=== PATIENT | male | born 1965 | race Caucasian/White ===

== ENCOUNTER 2017-09-16 19:19 | Observation (INO) | payer MEDICAID, OTHER ==
[~2017-09-16] VITALS: Ht 185.4 cm; Wt 92.3 kg
[~2017-09-16 19:19] MED LIST: ASPI81TA17 PO; LEVA750T PO; LISI-360 PO; LOVA20TA PO; PRED20 PO
[2017-09-16 19:28] VITALS: BP 92/54; PULSE 77; RESP 18; TEMP 98.5; O2SAT 94
[2017-09-16] MEDS ORDERED: SODIUM CHLOR 0.9% 1000 ML INJ 1,000 ML IV SCH (19:30)
[2017-09-16] MEDS ORDERED: THIAMINE INJ 100 MG in SODIUM CHLORIDE 0.9% INJ 100 ML IV ONE (19:30)
--- NOTE | 2017-09-16 19:38 | PD ---
HPI Chief Complaint: Syncope/Near-Syncope Time Seen by Provider: 19:29 Travel History International Travel<30 days: No Contact w/Intl Traveler<30days: No Traveled to known affect area: No History of Present Illness HPI The patient is a 52 year old male with a history of alcohol abuse who presents to the [facility] emergency department with a history of tripping and falling at the [facility], [place] where he was in the process of waiting for detox. The patient reports that he normally drinks a fifth of vodka per day. He reports that he did drink a pint of vodka today. He reports he was last and rehabilitation for alcohol abuse 3 weeks ago. He reports that he began to drink immediately on the way home from his detox. The patient's only other medical problems are a history of right-sided sciatica and hypertension. The patient reports that he fell forward and hit the left side of his head. The patient reports that he believes that he may have had a loss of consciousness. He reports that he has neck pain. He denies having any numbness or tingling to his extremities or weakness of his extremities. He reports that he does have right-sided effecting sciatica that was aggravated by the fall. On review of systems otherwise, the patient denies having any recent fevers, cough, congestion, chest pain, shortness of breath, abdominal pain, vomiting, diarrhea, urinary symptoms, or other neurologic symptoms. [facility] Past Medical History Narrative Medical The patient's past medical history is significant for hypertension, sciatica Cancer: No Cardiovascular Problems: No Diabetes: No Endocrine: No Genitourinary: No Hepatitis: No Hiatal Hernia: No Immune Disorder: No Musculoskeletal: No Neurologic: No Psychiatric: No Reproductive: No Respiratory: No Thyroid Disease: No Past Surgical History Surgical History: No Previous Surgery AICD: No Joint Replacement: No Pacemaker: No Social History Alcohol Use: Yes (1/5 of vodka per day) Tobacco Use: Yes (one pack per day) Substance Use: No Allergies-Medications (Allergen,Severity, Reaction): Coded Allergies: penicillin G (Unverified Allergy, Severe, Anaphylaxis, 06/11/17) Reported Meds & Prescriptions Reported Meds & Active Scripts Active Reported Lisinopril 10 Mg Tab 10 Mg PO DAILY Hydrochlorothiazide 25 Mg Tab 25 Mg PO DAILY Hydrochlorothiazide 25 Mg Tab 25 Mg PO BID Propranolol (Propranolol HCl) 10 Mg Tab 10 Mg PO Q12HR Review of Systems Except as stated in HPI: all other systems reviewed are Neg General / Constitutional: No: Fever Eyes: No: Visual changes HENT: Positive: Headaches, Neck Pain, No: Neck Stiffness Cardiovascular: No: Chest Pain or Discomfort Respiratory: No: Shortness of Breath Gastrointestinal: No: Abdominal Pain Genitourinary: No: Dysuria Musculoskeletal: No: Pain Skin: No Rash Neurologic: Positive: Headache, No: Weakness, Focal Abnormalities, Change in Mentation, Slurred Speech, Sensory Disturbance Psychiatric: No: Depression Endocrine: No: Polydipsia Hematologic/Lymphatic: No: Easy Bruising Physical Exam Narrative General: The patient is a well-developed well-nourished male in no acute distress. The patient is brought in on a back board in full c-spine immobilization by emergency services. Head and Neck exam: Head is normocephalic, with reported pain along the left side of his forehead, however there is no visible erythema, ecchymosis, or edema. No facial bone tenderness or increased facial bone mobility noted on palpation. Eyes: EOMI, pupils are equal round and reactive to light. Nose: Midline septum with pink mucous membranes Mouth: Dentition unremarkable. Moist mucus membranes. Posterior oropharynx is not erythematous. No tonsillar hypertrophy. Uvula midline. Airway patent. Neck: The patient is immobilized in a cervical collar. No tracheal deviation. The trachea appears midline. Cardiovascular: Regular rate and rhythm without murmurs, gallops, or rubs. No pulse deficit to the extremities. Lungs: Clear to auscultation bilaterally. No wheezes, rhonchi, or rales. No chest wall tenderness to palpation. No erythema or ecchymosis noted. No crepitus , step off, or flail segment noted. Abdomen: Soft, without tenderness to palpation in all 4 quadrants of the abdomen. No guarding, rebound, or rigidity. No erythema or ecchymosis noted. Extremities: No instability or pain noted on pelvic rock. No clubbing, cyanosis , or edema. 2+ pulses in all 4 extremities. No extremity tenderness or deformity noted on palpation or passive/ active range of motion, except Back: The patient was log rolled off of the back board. No spinous process tenderness to palpation. No stepoff or crepitus noted. No costovertebral angle tenderness to palpation. No erythema or ecchymosis. The patient reports having tenderness on palpation overlying the right SI joint/upper buttock area. Neurologic Exam: Cranial nerves 2-12 were intact on exam. Strength is 5/5 in all 4 extremities. No sensory deficits noted. Skin Exam: No rash noted. Intact skin that is warm and dry. Data Data Last Documented VS Vital Signs Date Time Temp Pulse Resp B/P (MAP) Pulse Ox O2 Delivery O2 Flow Rate FiO2 09/16/17 20:12 78 18 97/61 (73) 99 Nasal Cannula 2.00 09/16/17 19:28 98.5 Orders Orders Complete Blood Count With Diff (09/16/17:) Comprehensive Metabolic Panel (09/16/17) Prothrombin Time / Inr (Pt) (09/16/17) Act Partial Throm Time (Ptt) (09/16/17:30) Urinalysis - C+S If Indicated (09/16/17:) Magnesium (Mg) (09/16/17:30) Chest, Single Ap (09/16/17:30) Ct Brain W/O Iv Contrast(Rout) (09/16/17:30) Pelvis, Ap Only (Routine) (09/16/17:30) Iv Access Insert/Monitor (09/16/17:30) Ecg Monitoring (09/16/17:30) Oximetry (09/16/17:30) Drug Screen, Random Urine (09/16/17:) Alcohol (Ethanol) (09/16/17:30) Ct Cerv Spine W/O Contrast (09/16/17:30) Ct Lumb Spine W/O Contrast (09/16/17:30) Sodium Chlor 0.9% 1000 Ml Inj (Ns 1000 M (09/16/17 19:30) Thiamine Inj (Thiamine Inj) (09/16/17:30) Sodium Chlor 0.9% 1000 Ml Inj (Ns 1000 M (09/16/17 19:45) Sodium Chlor 0.9% 1000 Ml Inj (Ns 1000 M (09/16/17 21:30) Ns + Kcl 40 Meq Inj (Ns + Kcl 40 Meq Inj (09/16/17 21:30) Magnesium Sulfate 1 Gm Premix (Magnesium (09/16/17 21:30) Electrocardiogram (09/16/17 19:31) Admit Order (Ed Use Only) (09/16/17 21:58) Labs Laboratory Tests Test 09/16/17 20:00 White Blood Count 5.3 TH/MM3 Red Blood Count 3.89 MIL/MM3 Hemoglobin 14.9 GM/DL Hematocrit 41.7 % Mean Corpuscular Volume 107.1 FL Mean Corpuscular Hemoglobin 38.3 PG Mean Corpuscular Hemoglobin Concent 35.8 % Red Cell Distribution Width 16.9 % Platelet Count 154 TH/MM3 Mean Platelet Volume 7.7 FL Neutrophils (%) (Auto) 53.6 % Lymphocytes (%) (Auto) 34.6 % Monocytes (%) (Auto) 9.3 % Eosinophils (%) (Auto) 1.4 % Basophils (%) (Auto) 1.1 % Neutrophils # (Auto) 2.9 TH/MM3 Lymphocytes # (Auto) 1.8 TH/MM3 Monocytes # (Auto) 0.5 TH/MM3 Eosinophils # (Auto) 0.1 TH/MM3 Basophils # (Auto) 0.1 TH/MM3 CBC Comment DIFF FINAL Differential Comment Prothrombin Time 10.6 SEC Prothromb Time International Ratio 1.0 RATIO Activated Partial Thromboplast Time 24.7 SEC Blood Urea Nitrogen 4 MG/DL Creatinine 1.79 MG/DL Random Glucose 114 MG/DL Total Protein 8.1 GM/DL Albumin 3.8 GM/DL Calcium Level 8.7 MG/DL Magnesium Level 1.6 MG/DL Alkaline Phosphatase 82 U/L Aspartate Amino Transf (AST/SGOT) 174 U/L Alanine Aminotransferase (ALT/SGPT) 108 U/L Total Bilirubin 0.5 MG/DL Sodium Level 133 MEQ/L Potassium Level 2.6 MEQ/L Chloride Level 93 MEQ/L Carbon Dioxide Level 26.6 MEQ/L Anion Gap 13 MEQ/L Estimat Glomerular Filtration Rate 40 ML/MIN Ethyl Alcohol Level 322 MG/DL [facility] Medical Decision Making Medical Screen Exam Complete: Yes Emergency Medical Condition: Yes Medical Record Reviewed: Yes Interpretation(s) Last Impressions Pelvis X-Ray 09/16/[id number] Signed Impressions: Service Date/Time: Saturday, September 16, 2017 19:30 - CONCLUSION: No evidence of recent bony injury. Oliver Swenson MD Lumbar Spine CT [id number]/[id number] Signed Impressions: Service Date/Time: Saturday, September 16, 2017 20:19 - CONCLUSION: 1. No evidence of fracture or spondylolisthesis. 2. Discogenic degenerative changes L4-5 and L5-S1. Probable impingement on the S1 nerve roots as they course through the bony spinal canal bilaterally. Oliver Swenson MD Head CT [id number]/[id number] Signed Impressions: Service Date/Time: Saturday, September 16, 2017 20:13 - CONCLUSION: Negative noncontrast CT brain. Oliver Swenson MD Chest X-Ray [id number]/[id number] Signed Impressions: Service Date/Time: Saturday, September 16, 2017 19:30 - CONCLUSION: The lungs are clear. Oliver Swenson MD Cervical Spine CT [id number] Signed Impressions: Service Date/Time: Saturday, September 16, 2017 20:15 - CONCLUSION: Negative CT cervical spine. Oliver Swenson MD Differential Diagnosis Pelvis fracture, versus lumbar spine injury, versus intracranial hemorrhage, versus cervical spine injury Narrative Course During the course of the patients emergency department visit, the patients history, examination, and differential diagnosis were reviewed with the patient. The patient was placed on a hospital monitor with oximetry and frequent blood pressure monitoring. The patient had IV access obtained and blood work sent for analysis. The patient had an ECG done on arrival. The patient's ECG reveals a sinus rhythm heart rate is 72, nonspecific T-wave abnormalities are noted, prolonged QT interval is noted, QRS duration is 101 ms, QTC [address] segment elevation. The patient was initially provided normal saline at 125 mL per hour, thiamine 100 mg IV. The patient's blood pressure dropped to and 80 systolic and the patient was given a normal saline 1 L IV fluid bolus. The patient reports that he did not take his lisinopril per usual in the morning, therefore he took 2 doses this evening of 20 mg. He is usually on 20 mg twice a day. He denies taking his hydrochlorothiazide today. He is also on propranolol and did not take his dose today. The patients laboratory studies were reviewed and remarkable for a white count of 5.3, hemoglobin 14.9, platelets 154 with 9.3 monocytes. CMP is remarkable for sodium of 133, potassium 2.6, chloride 93, V1 4, creatinine 1.79, glucose 114, AST 174, ALT 108, PT PTT within normal limits, alcohol level CCCXXII, urinalysis screen positive for benzodiazepine, urinalysis shows 30 protein and otherwise unremarkable.s Radiology studies were reviewed and remarkable for a CT scan of the head and neck that showed no acute abnormality. Chest x-ray, pelvis x-ray showed no acute abnormality. CT scan of the lumbar spine shows no evidence of fracture or spondylolisthesis, discogenic degenerative changes are noted at L4-L5 and L5- S1, probable impingement of the S1 nerve roots has a course through the bony spinal canal bilaterally. Given the patient's hypokalemia and prolonged QT on ECG the patient was started on normal saline at 125 mL per hour with 40 mEq of potassium chloride. The patient was given magnesium 1 g IV. The patient was given a second liter of normal saline IV fluids The patients results were discussed with the patient, including the plan of care. I explained that further testing and/ or monitoring is indicated based on the patients history, examination, and/ or laboratory findings. Therefore, I recommended admission for additional evaluation. The patient expressed understanding and was agreeable with this plan. The patient was admitted to the hospital in stable condition and sent to a bed under the care of [facility] service. Physician Communication Physician Communication The patient's case including history, pertinent physical examination findings, and laboratory studies were discussed with Dr. Benitez. It was agreed that the patient would be admitted to the [facility] service. Diagnosis Primary Impression: Fall Qualified Codes: W19.XXXA - Unspecified fall, initial encounter Additional Impressions: Alcohol abuse Head injury Qualified Codes: S09.90XA - Unspecified injury of head, initial encounter Hypokalemia Admitting Information Admitting Physician Requests: Admit Lore Stanley MD Sep 16, 2017 19:38
[2017-09-16] MEDS ORDERED: SODIUM CHLOR 0.9% 1000 ML INJ 1,000 ML IV ONE ×2 (19:45→21:30)
[2017-09-16] MEDS ORDERED: HYDR25TA5 PO ×2 (19:48→19:49)
[2017-09-16] MEDS ORDERED: PROP10TA6 PO (19:48)
[2017-09-16 19:49] VITALS: BP 95/63; O2SAT 97
[2017-09-16] MEDS ORDERED: LISI10TA3 PO (20:07)
[2017-09-16 20:12] VITALS: BP 97/61; PULSE 78; RESP 18; O2SAT 99
[2017-09-16 20:23] LABS: AUTOMATED NEUTROPHIL # 2.9 TH/MM3 (1.8-7.7); BASOPHIL # 0.1 TH/MM3 (0-0.2); BASOPHIL % 1.1 % (0.0-2.0); EOSINOPHIL # 0.1 TH/MM3 (0-0.4); EOSINOPHIL % 1.4 % (0.0-4.0); HEMATOCRIT 41.7 % (39.0-51.0); HEMO FLAGS DIFF FINAL; LYMPH % 34.6 % (9.0-44.0); LYMPHOCYTE # 1.8 TH/MM3 (1.0-4.8); MEAN CELL VOLUME 107.1 FL (80.0-100.0); MEAN CORPUSCULAR HEMOGLOBIN 38.3 PG (27.0-34.0); MEAN CORPUSCULAR HGB CONC 35.8 % (32.0-36.0); MONO % 9.3 % (0.0-8.0); NEUT % 53.6 % (16.0-70.0); PLATELET COUNT 154 TH/MM3 (150-450); RED BLOOD COUNT 3.89 MIL/MM3 (4.50-5.90); RED CELL DISTRIBUTION WIDTH 16.9 % (11.6-17.2); WHITE BLOOD COUNT 5.3 TH/MM3 (4.0-11.0)
[2017-09-16 20:37] LABS: APTT (PATIENT) 24.7 SEC (24.3-30.1); PROTHROMBIN TIME - PATIENT 10.6 SEC (9.8-11.6)
[2017-09-16 20:52] LABS: ALKALINE PHOSPHATASE 82 U/L (45-117); ALT (GPT) 108 U/L (12-78); ANION GAP 13 MEQ/L (5-15); AST (GOT) 174 U/L (15-37); BICARBONATE 26.6 MEQ/L (21.0-32.0); BLOOD UREA NITROGEN 4 MG/DL (7-18); CHLORIDE 93 MEQ/L (98-107); GLOMERULAR FILTRATION RATE 40 ML/MIN (>89); MAGNESIUM 1.6 MG/DL (1.5-2.5); SODIUM (NA) 133 MEQ/L (136-145); TOTAL BILIRUBIN ADULT 0.5 MG/DL (0.2-1.0)
--- NOTE | 2017-09-16 20:58 | RADRPT ---
EXAM DATE/TIME: 09/16/2017 19:30 [facility] COMPARISON: No previous studies available for comparison. INDICATIONS : Chest pain after fall. MEDICAL HISTORY : None. SURGICAL HISTORY : None. ENCOUNTER: Initial ACUITY: 1 day PAIN SCORE: 3/10 LOCATION: Right chest FINDINGS: A single view of the chest demonstrates the lungs to be symmetrically aerated without evidence of mas s, infiltrate or effusion. No evidence of pneumothorax. The cardiomediastinal contours are unremarka ble. Osseous structures are intact. CONCLUSION: The lungs are clear. Oliver Swenson MD on September 16, 2017 at 20:30 Board Certified Radiologist. This report was verified electronically.
[2017-09-16 20:59] LABS: POTASSIUM 2.6 MEQ/L (3.5-5.1)
--- NOTE | 2017-09-16 20:59 | RADRPT ---
EXAM DATE/TIME: 09/16/2017 19:30 [facility] COMPARISON: No previous studies available for comparison. INDICATIONS : Right pelvis pain after fall. MEDICAL HISTORY : None. SURGICAL HISTORY : None. ENCOUNTER: Initial ACUITY: 1 day PAIN SCORE: 10/10 LOCATION: Right pelvis. FINDINGS: A single frontal view of the pelvis demonstrates no evidence of fracture. The bony pelvic ring is in tact. Symmetric appearance of the femoral head and neck bilaterally. Bony mineralization is normal. The soft tissues are intact. CONCLUSION: No evidence of recent bony injury. Oliver Swenson MD on September 16, 2017 at 20:48 Board Certified Radiologist. This report was verified electronically.
[2017-09-16 21:04] LABS: ALCOHOL 322 MG/DL (0-5)
--- NOTE | 2017-09-16 21:33 | RADRPT ---
EXAM DATE/TIME: 09/16/2017 20:13 [facility] COMPARISON: No previous studies available for comparison. INDICATIONS : Syncopal episode RADIATION DOSE: 69.15 CTDIvol (mGy) MEDICAL HISTORY : Hypertension. nasal polyp SURGICAL HISTORY : None. ENCOUNTER: Initial ACUITY: 1 day PAIN SCALE: 4/10 LOCATION: cranial TECHNIQUE: Multiple contiguous axial images were obtained of the head. Using automated exposure control and adj ustment of the mA and/or kV according to patient size, radiation dose was kept as low as reasonably a chievable to obtain optimal diagnostic quality images. DICOM format image data is available electro nically for review and comparison. FINDINGS: CEREBRUM: The ventricles are normal for age. No evidence of midline shift, mass lesion, hemorrhage or acute in farction. No extra-axial fluid collections are seen. POSTERIOR FOSSA: The cerebellum and brainstem are intact. The 4th ventricle is midline. The cerebellopontine angle i s unremarkable. EXTRACRANIAL: The visualized portion of the orbits is intact. SKULL: The calvaria is intact. No evidence of skull fracture. CONCLUSION: Negative noncontrast CT brain. Oliver Swenson MD on September 16, 2017 at 21:30 Board Certified Radiologist. This report was verified electronically.
--- NOTE | 2017-09-16 21:34 | RADRPT ---
EXAM DATE/TIME: 09/16/2017 20:15 [facility] COMPARISON: No previous studies available for comparison. INDICATIONS : Syncopal episode RADIATION DOSE: 39.47 CTDIvol (mGy) MEDICAL HISTORY : Hypertension. Nasal polyp SURGICAL HISTORY : None. ENCOUNTER: Initial ACUITY: 1 day PAIN SCALE: 4/10 LOCATION: neck TECHNIQUE: Volumetric scanning of the cervical spine was performed. Multiplanar reconstructions in the sagittal, coronal and oblique axial planes were performed. Using automated exposure control and adjustment o f the mA and/or kV according to patient size, radiation dose was kept as low as reasonably achievable to obtain optimal diagnostic quality images. DICOM format image data is available electronically f or review and comparison. FINDINGS: VERTEBRAE: Normal vertebral body height. ALIGNMENT: No evidence of subluxation. The facet joints are normal alignment. Atlantoaxial articulation is int act. C2-C3: The bony spinal canal is normal in size. No evidence of disc bulge or herniation. The neural forami na are bilaterally patent. C3-C4: The bony spinal canal is normal in size. No evidence of disc bulge or herniation. The neural forami na are bilaterally patent. C4-C5: The bony spinal canal is normal in size. No evidence of disc bulge or herniation. The neural forami na are bilaterally patent. C5-C6: The bony spinal canal is normal in size. No evidence of disc bulge or herniation. The neural forami na are bilaterally patent. C6-C7: The bony spinal canal is normal in size. No evidence of disc bulge or herniation. The neural forami na are bilaterally patent. C7-T1: The bony spinal canal is normal in size. No evidence of disc bulge or herniation. The neural forami na are bilaterally patent. CONCLUSION: Negative CT cervical spine. Oliver Swenson MD on September 16, 2017 at 21:31 Board Certified Radiologist. This report was verified electronically.
--- NOTE | 2017-09-16 21:35 | RADRPT ---
EXAM DATE/TIME: 09/16/2017 20:19 [facility] COMPARISON: No previous studies available for comparison. INDICATIONS : Syncopal episode,back pain RADIATION DOSE: 20.80 CTDIvol (mGy) MEDICAL HISTORY : Hypertension. Nasal polyp SURGICAL HISTORY : None. ENCOUNTER: Initial ACUITY: 1 day PAIN SCALE: 4/10 LOCATION: Lumbar TECHNIQUE: Volumetric scanning of the lumbar spine was performed. Multiplanar reconstructions in the sagittal, coronal and oblique axial planes were performed. Using automated exposure control and adjustment of the mA and/or kV according to patient size, radiation dose was kept as low as reasonably achievable t o obtain optimal diagnostic quality images. DICOM format image data is available electronically for review and comparison. FINDINGS: VERTEBRAE: Normal vertebral body height. ALIGNMENT: No evidence of subluxation. T12-L1: The thecal sac has a normal diameter. No evidence of disc bulge or protrusion. The neural foramina are patent bilaterally. L1-L2: The thecal sac has a normal diameter. No evidence of disc bulge or protrusion. The neural foramina are patent bilaterally. L2-L3: The thecal sac has a normal diameter. No evidence of disc bulge or protrusion. The neural foramina are patent bilaterally. L3-L4: The thecal sac has a normal diameter. No evidence of disc bulge or protrusion. The neural foramina are patent bilaterally. L4-L5: Mild broad-based bulging of the disc flattens the ventral margin of the thecal sac. L5-S1: Narrowing of the interspace and vacuum phenomenon with mildly prominent paravertebral ossification la terally. Broad-based bulging of the disc does cause indentation on the S1 nerve roots as they course through the bony spinal canal. No deformity of the thecal sac. CONCLUSION: 1. No evidence of fracture or spondylolisthesis. 2. Discogenic degenerative changes L4-5 and L5-S1. Probable impingement on the S1 nerve roots as the y course through the bony spinal canal bilaterally. Oliver Swenson MD on September 16, 2017 at 21:32 Board Certified Radiologist. This report was verified electronically.
[2017-09-16] MEDS: NS + KCL 40 MEQ INJ 1,000 ML IV SCH (21:51)
[2017-09-16] MEDS: MAGNESIUM SULFATE 1 GM PREMIX 100 ML IV SCH (21:51)
[2017-09-16 22:33] VITALS: BP 96/62; PULSE 78; RESP 18; O2SAT 97
[2017-09-16 23:16] LABS: BLOOD, URINE NEG (NEG); COMMENT (UR) CULT NOT INDICATED; CULTURE IF INDICATED CULT NOT INDICATED; GLUCOSE,URINE NEG (NEG); HYALINE CAST, URINE 3 /lpf (RARE); KETONE, URINE NEG (NEG); NITRITE,URINE NEG (NEG); URINE COLOR YELLOW (YELLW/STRAW)
[2017-09-16 23:22] VITALS: BP 124/78; PULSE 75; RESP 20; TEMP 97.5; O2SAT 93
[2017-09-17] VITALS (7 sets, daily range): BP systolic 124–174; BP diastolic 60–111; PULSE 73–88; RESP 18–20; TEMP 97.4–98.3; O2SAT 91–95
[2017-09-17] MEDS ORDERED: LORazepam 2 MG TAB PO PRN (00:15)
[2017-09-17] MEDS ORDERED: LORazepam 1 MG TAB PO PRN (00:15)
[2017-09-17] MEDS ORDERED: ONDANSETRON HCL 4 MG/2 ML VIAL IV PUSH PRN (00:15)
[2017-09-17] MEDS ORDERED: FLUMAZENIL 0.5 MG/5 ML VIAL IV PUSH PRN (00:15)
[2017-09-17] MEDS ORDERED: LORazepam 2 MG/ML VIAL IV PUSH PRN ×3 (00:15)
[2017-09-17] MEDS ORDERED: SODIUM CHLORIDE 0.9% FLUSH 10 ML FLUSH IV FLUSH PRN (00:15)
[2017-09-17] MEDS ORDERED: POTASSIUM CHLORIDE 20 MEQ CONTROLLED RELEASE TAB PO ONE (00:15)
[2017-09-17] MEDS ORDERED: HALOPERIDOL LACTATE 5 MG/ML AMP IM PRN (00:15)
--- NOTE | 2017-09-17 00:24 | HHI.HP ---
[facility] No Primary Care Physician Admission Diagnosis Fall, hypotension, hypomagnesemia Diagnoses: Travel History International Travel<30 Days: No Contact w/Intl Traveler <30 Da: No Traveled to Known Affected Are: No History of Present Illness 52-year-old male with a past medical history significant for alcohol abuse hypertension was brought to the emergency department by EMS after suffering a fall at [facility] The patient reports he was being seen at [facility] for his alcohol abuse problem when he fell and hit his head. The patient is unsure why he fell he drank a pint of vodka prior to going to [facility] and also took twice as much of his lisinopril as he is supposed to take. Blood pressure upon arrival to the emergency department was 92/54. Radiologic studies including CT of the cervical and lumbar spine, chest x-ray, pelvis x-ray and head CT all negative for acute abnormalities. Patient's lab work significant for a sodium of 133, potassium of 2.6, creatinine of 1.79 ( baseline 0.73 and 2013) and AST/ALT 174/108. Alcohol level 322. The patient denies any pain at this time. He states he is starting to feel shaky and anxious because it has been all day since he has had any alcohol. Review of Systems Denies fever or chills Denies blurry vision, otorrhea, rhinorrhea Denies sore throat and cough No chest pain, palpitations, shortness of breath No abdominal pain Denies constipation/diarrhea/nausea/vomiting Denies muscle pain/weakness No rashes Past Family Social History Past Medical History Hypertension Past Surgical History Tonsillectomy Reported Medications Reported Meds & Active Scripts Active Reported Lisinopril 10 Mg Tab 10 Mg PO DAILY Hydrochlorothiazide 25 Mg Tab 25 Mg PO DAILY Hydrochlorothiazide 25 Mg Tab 25 Mg PO BID Propranolol (Propranolol HCl) 10 Mg Tab 10 Mg PO Q12HR Allergies: Coded Allergies: penicillin G (Unverified Allergy, Severe, Anaphylaxis, 06/11/17) Family History Father with heart disease. Brother with diabetes mellitus. Social History Drinks approximately a fifth of vodka per day. Smokes 1 pack per day 20 years. Denies alcohol or illicit drugs. Physical Exam Vital Signs Vital Signs Date Time Temp Pulse Resp B/P (MAP) Pulse Ox O2 Delivery O2 Flow Rate FiO2 09/16/17 23:22 97.5 75 20 124/78 (93) 93 09/16/17 22:37 09/16/17 22:33 78 18 96/62 (73) 97 Room Air 09/16/17 20:12 78 18 97/61 (73) 99 Nasal Cannula 2.00 09/16/17 19:49 95/63 (74) 97 Nasal Cannula 2.00 09/16/17 19:28 89 Room Air 09/16/17 19:28 98.5 77 18 92/54 (67) 94 Room Air 2.00 Physical Exam GENERAL: male sitting up in bed, c-collar in place SKIN: No rashes, ecchymoses or lesions. Cool and dry. HEAD: Atraumatic. Normocephalic. No temporal or scalp tenderness. EYES: Pupils equal round and reactive. Extraocular motions intact. No scleral icterus. No injection or drainage. ENT: Nose without bleeding, purulent drainage or septal hematoma. Throat without erythema, tonsillar hypertrophy or exudate. Uvula midline. Airway patent. NECK: Trachea midline. No JVD or lymphadenopathy. Supple, nontender, no meningeal signs. CARDIOVASCULAR: Regular rate and rhythm without murmurs, gallops, or rubs. RESPIRATORY: Clear to auscultation. Breath sounds equal bilaterally. No wheezes , rales, or rhonchi. GASTROINTESTINAL: Abdomen soft, non-tender, nondistended. No hepato-splenomegaly , or palpable masses. No guarding. MUSCULOSKELETAL: Extremities without clubbing, cyanosis, or edema. No joint tenderness, effusion, or edema noted. No calf tenderness. Negative Homans sign bilaterally. NEUROLOGICAL: Awake and alert. Cranial nerves II through XII intact. Motor and sensory grossly within normal limits. Normal speech. Laboratory Laboratory Tests Test 09/16/17 20:00 09/16/17 23:00 White Blood Count 5.3 Red Blood Count 3.89 Hemoglobin 14.9 Hematocrit 41.7 Mean Corpuscular Volume 107.1 Mean Corpuscular Hemoglobin 38.3 Mean Corpuscular Hemoglobin Concent 35.8 Red Cell Distribution Width 16.9 Platelet Count 154 Mean Platelet Volume 7.7 Neutrophils (%) (Auto) 53.6 Lymphocytes (%) (Auto) 34.6 Monocytes (%) (Auto) 9.3 Eosinophils (%) (Auto) 1.4 Basophils (%) (Auto) 1.1 Neutrophils # (Auto) 2.9 Lymphocytes # (Auto) 1.8 Monocytes # (Auto) 0.5 Eosinophils # (Auto) 0.1 Basophils # (Auto) 0.1 CBC Comment DIFF FINAL Differential Comment Prothrombin Time 10.6 Prothromb Time International Ratio 1.0 Activated Partial Thromboplast Time 24.7 Blood Urea Nitrogen 4 Creatinine 1.79 Random Glucose 114 Total Protein 8.1 Albumin 3.8 Calcium Level 8.7 Magnesium Level 1.6 Alkaline Phosphatase 82 Aspartate Amino Transf (AST/SGOT) 174 Alanine Aminotransferase (ALT/SGPT) 108 Total Bilirubin 0.5 Sodium Level 133 Potassium Level 2.6 Chloride Level 93 Carbon Dioxide Level 26.6 Anion Gap 13 Estimat Glomerular Filtration Rate 40 Ethyl Alcohol Level 322 Urine Color YELLOW Urine Turbidity CLEAR Urine pH 6.0 Urine Specific Barto 1.004 Urine Protein 30 Urine Glucose (UA) NEG Urine Ketones NEG Urine Occult Blood NEG Urine Nitrite NEG Urine Bilirubin NEG Urine Urobilinogen LESS THAN 2.0 Urine Leukocyte Esterase NEG Urine RBC 1 Urine WBC 1 Urine Hyaline Casts 3 Microscopic Urinalysis Comment CULT NOT INDICATED Urine Opiates Screen NEG Urine Barbiturates Screen NEG Urine Amphetamines Screen NEG Urine Benzodiazepines Screen POS Urine Cocaine Screen NEG Urine Cannabinoids Screen NEG Result Diagram: 09/16/17199909/16/171999 Caprini VTE Risk Assessment Caprini VTE Risk Assessment: No/Low Risk (score <= 1) Caprini Risk Assessment Model Point Value = 1 Point Value = 2 Point Value = 3 Point Value = 5 Age 41-60 Minor surgery BMI > 25 kg/m2 Swollen legs Varicose veins or History of unexplained or recurrent spontaneous Oral contraceptives or hormone replacement Sepsis (< 1 month) Serious lung disease, including pneumonia (< 1 month) Abnormal pulmonary function Acute myocardial infarction Congestive heart failure (< 1 month) History of inflammatory bowel disease Medical patient at bed rest Age 61-74 Arthroscopic surgery Major open surgery (> 45 min) Laparoscopic surgery (> 45 min) Malignancy Confined to bed (> 72 hours) Immobilizing plaster cast Central venous access Age >= 75 History of VTE Family history of VTE Factor V Leiden Prothrombin [id number] Lupus anticoagulant Anticardiolipin antibodies Elevated serum homocysteine Heparin-induced thrombocytopenia Other congenital or acquired thrombophilia Stroke (< 1 month) Elective arthroplasty Hip, pelvis, or leg fracture Acute spinal cord injury (< 1 month) Prophylaxis Regimen Total Risk Factor Score Risk Level Prophylaxis Regimen 0-1 Low Early ambulation 2 Moderate Order ONE of the following: *Sequential Compression Device (SCD) *Heparin 5000 units SQ BID 3-4 Higher Order ONE of the following medications: *Heparin 5000 units SQ TID *Enoxaparin/Lovenox 40 mg SQ daily (WT < 150 kg, CrCl > 30 mL/min) *Enoxaparin/Lovenox 30 mg SQ daily (WT < 150 kg, CrCl > 10-29 mL/min) *Enoxaparin/Lovenox 30 mg SQ BID (WT < 150 kg, CrCl > 30 mL/min) AND/OR *Sequential Compression Device (SCD) 5 or more Highest Order ONE of the following medications: *Heparin 5000 units SQ TID (Preferred with Epidurals) *Enoxaparin/Lovenox 40 mg SQ daily (WT < 150 kg, CrCl > 30 mL/min) *Enoxaparin/Lovenox 30 mg SQ daily (WT < 150 kg, CrCl > 10-29 mL/min) *Enoxaparin/Lovenox 30 mg SQ BID (WT < 150 kg, CrCl > 30 mL/min) AND *Sequential Compression Device (SCD) Assessment and Plan Assessment and Plan 52-year-old male with a past medical history significant for hypertension and alcohol abuse presents with acute alcohol intoxication and electrolyte abnormalities. 1. Hypokalemia Potassium 2.6 Supplemented with by mouth and IV potassium IV fluids NS + KCl Repeat BMP in the a.m. EKG significant for prolonged QT interval with a QTC of 481 ms, reviewed by me 2. Alcohol abuse/acute intoxication [facility] protocol Thiamine/Folic acid/Multivitamins Monitor for signs of acute withdrawal 3. SHERLEY IV fluid hydration Monitor BMP FEN Regular diet NS + 40 KCl at 125 cc/hr Electrolytes: as above SCDs Case discussed with the ER physician at length Physician Certification 2 Midnight Certification Type: Admission for Inpatient Services Order for Inpatient Services The services are ordered in accordance with Medicare regulations or non- Medicare payer requirements, as applicable. In the case of services not specified as inpatient-only, they are appropriately provided as inpatient services in accordance with the 2-midnight benchmark. Estimated LOS (days): 2 2 days is the estimated time the patient will need to remain in the hospital, assuming treatment plan goals are met and no additional complications. Post-Hospital Plan: Not yet determined Janeth Benitez MD Sep 17, 2017 00:24
[2017-09-17] MEDS: MAGNESIUM SULFATE 1 GM PREMIX 100 ML IV SCH (03:11)
[2017-09-17] MEDS: POTASSIUM CHLOR 10 MEQ PREMIX 100 ML IV SCH ×4 (04:06→07:20)
[2017-09-17] MEDS: SODIUM CHLORIDE 0.9% FLUSH 10 ML FLUSH IV FLUSH SCH ×2 (08:48→20:03)
[2017-09-17] MEDS: LORazepam 2 MG/ML VIAL IV PUSH PRN ×2 (08:55→23:44)
[2017-09-17] MEDS: MULTIVITAMINS/MINERALS THERAPEUTIC TAB PO SCH (08:57)
[2017-09-17] MEDS: LISINOPRIL 10 MG TAB PO SCH (08:57)
[2017-09-17] MEDS: THIAMINE HCL 100 MG TAB PO SCH (08:57)
[2017-09-17] MEDS: FOLIC ACID 1 MG TAB PO SCH (08:58)
[2017-09-17] MEDS: HYDROCHLOROTHIAZIDE 25 MG TAB PO SCH ×2 (08:58→20:00)
[2017-09-17] MEDS: PROPRANOLOL HCL 10 MG TAB PO SCH ×2 (08:58→20:00)
--- NOTE | 2017-09-17 09:42 | EKG ---
Date Performed: 09/16/2017 Time Performed: 19:31:00 PTAGE: 52 years EKG: Sinus rhythm NONSPECIFIC T-WAVE ABNORMALITY PROLONGED QT INTERVAL ABNORMAL ECG NO PREVIOUS TRACING DOCTOR: Lisandro Zepeda Interpretating Date/Time 09/17/2017 09:41:04
[2017-09-17] MEDS: NS + KCL 40 MEQ INJ 1,000 ML IV SCH ×2 (11:44→23:50)
[2017-09-18] VITALS (7 sets, daily range): BP systolic 140–183; BP diastolic 87–102; PULSE 61–75; RESP 18–20; TEMP 97.3–98.5; O2SAT 95–98
[2017-09-18] MEDS ORDERED: cloNIDine HCL 0.2 MG TAB PO ONE (00:15)
[2017-09-18 06:56] LABS: AUTOMATED NEUTROPHIL # 2.5 TH/MM3 (1.8-7.7); BASOPHIL % 0.8 % (0.0-2.0); EOSINOPHIL # 0.1 TH/MM3 (0-0.4); EOSINOPHIL % 2.8 % (0.0-4.0); HEMATOCRIT 34.2 % (39.0-51.0); LYMPH % 34.7 % (9.0-44.0); LYMPHOCYTE # 1.7 TH/MM3 (1.0-4.8); MEAN CELL VOLUME 109.2 FL (80.0-100.0); MEAN CORPUSCULAR HEMOGLOBIN 38.8 PG (27.0-34.0); MEAN CORPUSCULAR HGB CONC 35.5 % (32.0-36.0); MONO % 9.6 % (0.0-8.0); NEUT % 52.1 % (16.0-70.0); PLATELET COUNT 98 TH/MM3 (150-450); RED BLOOD COUNT 3.13 MIL/MM3 (4.50-5.90); RED CELL DISTRIBUTION WIDTH 16.7 % (11.6-17.2); WHITE BLOOD COUNT 4.8 TH/MM3 (4.0-11.0)
[2017-09-18 07:14] LABS: ALKALINE PHOSPHATASE 66 U/L (45-117); ALT (GPT) 67 U/L (12-78); ANION GAP 9 MEQ/L (5-15); AST (GOT) 78 U/L (15-37); BICARBONATE 26.3 MEQ/L (21.0-32.0); BLOOD UREA NITROGEN 6 MG/DL (7-18); CHLORIDE 103 MEQ/L (98-107); GLOMERULAR FILTRATION RATE 88 ML/MIN (>89); POTASSIUM 3.3 MEQ/L (3.5-5.1); SODIUM (NA) 138 MEQ/L (136-145); TOTAL BILIRUBIN ADULT 0.7 MG/DL (0.2-1.0)
[2017-09-18] MEDS ORDERED: cloNIDine HCL 0.1 MG TAB PO PRN (07:30)
[2017-09-18 08:10] LABS: HEMO FLAGS AUTO DIFF
[2017-09-18 08:13] LABS: PLATELET ESTIMATE SMEAR LOW (NORMAL); PLATELET MORPHOLOGY NORMAL (NORMAL); SCAN/DIFF AUTO DIFF CONFIRMED
--- NOTE | 2017-09-18 08:40 | HHI.PR ---
Subjective Remarks Patient in bed says she still has tremors. Reports diarrhea and also bloody stool red bright blood per rectum. No nausea or vomiting. Says he has a h/o vomiting blood but not at this time. No fever or chills.No abd pain. Objective Vitals Vital Signs Date Time Temp Pulse Resp B/P (MAP) Pulse Ox O2 Delivery O2 Flow Rate FiO2 09/18/17 08:08 98.5 63 18 140/96 (111) 96 09/18/17 04:48 98.2 65 20 154/92 (112) 95 09/18/17 01:47 66 149/99 (116) 09/18/17 00:47 97.9 75 20 183/102 (129) 96 09/17/17 20:00 98.3 80 20 160/111 (127) 95 09/17/17 16:12 98.3 75 18 157/100 (119) 94 09/17/17 11:47 97.4 80 18 174/107 (129) 95 I/O 09/17/17 09/17/17 09/17/17 09/18/17 09/18/17 09/18/17 07:00 15:00 23:00 07:00 15:00 23:00 Intake Total 640 ml Balance 640 ml Intake Oral 240 ml IV Total 400 ml # Voids 3 1 # Bowel Movements 1 1 Result Diagram: 09/18/17 0611 09/18/17 0611 Imaging Last Impressions Pelvis X-Ray 09/16/171929 Signed Impressions: Service Date/Time: Saturday, September 16, 2017 19:30 - CONCLUSION: No evidence of recent bony injury. Oliver Swenson MD Lumbar Spine CT 09/16/171929 Signed Impressions: Service Date/Time: Saturday, September 16, 2017 20:19 - CONCLUSION: 1. No evidence of fracture or spondylolisthesis. 2. Discogenic degenerative changes L4-5 and L5-S1. Probable impingement on the S1 nerve roots as they course through the bony spinal canal bilaterally. Oliver Swenson MD Head CT 09/16/[id number] Signed Impressions: Service Date/Time: Saturday, September 16, 2017 20:13 - CONCLUSION: Negative noncontrast CT brain. Oliver Swenson MD Chest X-Ray 09/16/171929 Signed Impressions: Service Date/Time: Saturday, September 16, 2017 19:30 - CONCLUSION: The lungs are clear. Oliver Swenson MD Cervical Spine CT 09/16/171929 Signed Impressions: Service Date/Time: Saturday, September 16, 2017 20:15 - CONCLUSION: Negative CT cervical spine. Oliver Swenson MD Objective Remarks GENERAL: male sitting up in bed, c-collar in place SKIN: No rashes, ecchymoses or lesions. Cool and dry. HEAD: Atraumatic. Normocephalic. No temporal or scalp tenderness. EYES: Pupils equal round and reactive. Extraocular motions intact. No scleral icterus. No injection or drainage. ENT: Nose without bleeding, purulent drainage or septal hematoma. Throat without erythema, tonsillar hypertrophy or exudate. Uvula midline. Airway patent. NECK: Trachea midline. No JVD or lymphadenopathy. Supple, nontender, no meningeal signs. CARDIOVASCULAR: Regular rate and rhythm without murmurs, gallops, or rubs. RESPIRATORY: Clear to auscultation. Breath sounds equal bilaterally. No wheezes , rales, or rhonchi. GASTROINTESTINAL: Abdomen soft, non-tender, nondistended. No hepato-splenomegaly , or palpable masses. No guarding. MUSCULOSKELETAL: Extremities without clubbing, cyanosis, or edema. No joint tenderness, effusion, or edema noted. No calf tenderness. Negative Homans sign bilaterally. NEUROLOGICAL: Awake and alert. Cranial nerves II through XII intact. Motor and sensory grossly within normal limits. Normal speech. A/P Assessment and Plan 52-year-old male with a past medical history significant for hypertension and alcohol abuse presents with acute alcohol intoxication and electrolyte abnormalities. Hypokalemia Potassium 2.6 on admission , replenished. Monitor and replace as need. Supplemented with by mouth and IV potassium IV fluids NS + KCl Repeat BMP in the a.m. EKG significant for prolonged QT interval with a QTC of 481 ms, reviewed by me Monitor closely Alcohol abuse/acute intoxication [facility] protocol Thiamine/Folic acid/Multivitamins Monitor for signs of acute withdrawal Hypertension: clonidine prn SHERLEY IV fluid hydration Monitor BMP Rectal bleed: Monitor H/H . Transfuse if HGB < 7 or if symptomatic. Consult GI for evaluation DVT ppx SCDs Discussed with the patient, nurse DC plan : pending improvement with rectal bleed at this time, consult GI, continue CIWA protocol. Taisha Herndon MD Sep 18, 2017 08:40
[2017-09-18] MEDS: SODIUM CHLORIDE 0.9% FLUSH 10 ML FLUSH IV FLUSH SCH (09:00)
[2017-09-18] MEDS: LISINOPRIL 10 MG TAB PO SCH (10:40)
[2017-09-18] MEDS: PROPRANOLOL HCL 10 MG TAB PO SCH (10:40)
[2017-09-18] MEDS: FOLIC ACID 1 MG TAB PO SCH (10:41)
[2017-09-18] MEDS: THIAMINE HCL 100 MG TAB PO SCH (10:42)
[2017-09-18] MEDS: HYDROCHLOROTHIAZIDE 25 MG TAB PO SCH (10:42)
[2017-09-18] MEDS: MULTIVITAMINS/MINERALS THERAPEUTIC TAB PO SCH (10:44)
[2017-09-18] MEDS: NS + KCL 40 MEQ INJ 1,000 ML IV SCH ×3 (10:46→17:57)
[2017-09-18] MEDS: LORazepam 2 MG/ML VIAL IV PUSH PRN (18:33)
== END 2017-09-18 21:30 | disposition left against medical advice (07) ==
LOC: NEPE 19:19 → NEDA 22:01 → UNDOADMIN 22:01 → NEDA 22:54 → N05B 22:54 → INTOOBSV 09-17 05:28
PROVIDERS: ADMIT Hospitalist; ATTEND Hospitalist
DX: E87.6 Hypokalemia (principal); F10.129 Alcohol abuse with intoxication, unspecified; S09.90XA Unspecified injury of head, initial encounter; N17.9 Acute kidney failure, unspecified; E83.42 Hypomagnesemia; I95.9 Hypotension, unspecified; R94.31 Abnormal electrocardiogram [ECG] [EKG]; I45.81 Long QT syndrome; R19.7 Diarrhea, unspecified; K92.1 Melena; R25.1 Tremor, unspecified; R55 Syncope and collapse; R10.2 Pelvic and perineal pain; M54.9 Dorsalgia, unspecified; I10 Essential (primary) hypertension; M54.2 Cervicalgia; M54.31 Sciatica, right side; F17.210 Nicotine dependence, cigarettes, uncomplicated; Y90.8 Blood alcohol level of 240 mg/100 ml or more; Z79.899 Other long term (current) drug therapy; W19.XXXA Unspecified fall, initial encounter
CPT/HCPCS: 70450; 71010; 72125; 72131; 72170; 80053; 80307; 81001; 82948; 83735; 85025; 85610; 85730; 93005; 96361; 96365; 96366; 96375; 96376; 99285; G0378; J2060; J2405; J3411; J3475; J3480; J7030